=== PATIENT | male | born 1990 | race Caucasian/White ===

== ENCOUNTER → 2018-06-24 | Day surgery (SDC) | payer OTHER ==
[~2018-06-24] MED LIST: BLEOMYCIN SULFATE 15 UNIT VIAL SQ ONE; BLEOMYCIN SULFATE IVPB ONE; CISPLATIN IV ONE; DEXAMETHASONE INJECTION 10 MG, ONDANSETRON INJECTION 8 MG in SODIUM CHLORIDE 100 ML IVPB ONE; ETOPOSIDE IV ONE; FOSAPREPITANT DIMEGLUMINE 150 MG in SODIUM CHLORIDE 145 ML IVPB ONE; POTASSIUM CHLORIDE 20 MEQ, MAGNESIUM SULFATE 1 GM in SODIUM CHLORIDE 1,000 ML IVPB ONE; SODIUM CHLORIDE 1,000 ML IV ONE; SODIUM CHLORIDE IV ONE; SODIUM CHLORIDE IVPB ONE
== END | disposition home or self-care (01) ==
LOC: JRADIR 09:35
PROVIDERS: ATTEND Internal Medicine Hematology & Oncology
PROC: 02HV33Z Insertion of Infusion Device into Superior Vena Cava, Percutaneous Approach (ICD-10-PCS; principal; 2018-06-24)
PROC: B518ZZA Fluoroscopy of Superior Vena Cava, Guidance (ICD-10-PCS; 2018-06-24)
DX: C62.90 Malignant neoplasm of unspecified testis, unspecified whether descended or undescended (principal)
CPT/HCPCS: 36569; 77001-TC-FY; C1751

== ENCOUNTER 2018-06-28 08:34 | Inpatient (IN) | payer OTHER ==
[2018-06-28 10:18] LABS: BASO % 0.8 % (0-2.0); EOS % 2.5 % (0-4.5); HEMATOCRIT 47.2 % (35.4-49); HEMOGLOBIN 16.5 GM/dL (11.7-16.9); LYMPH % 30.6 % (8-40); MCH 30.1 pg (25.7-33.7); MCHC 34.9 g/dl (32.0-35.9); MEAN CELL VOLUME 86.5 fl (80-96); MEAN PLT VOLUME 8.4 fl (7.5-11.1); MONO % 9.2 % (3.8-10.2); NEUT % 56.9 % (42.8-82.8); PLATELET COUNT 246 K/MM3 (134-434); RBC 5.46 M/mm3 (4.00-5.60); RDW 12.9 % (11.9-15.9)
[2018-06-28 11:10] LABS: ALBUMIN 4.2 g/dl (3.4-5.0); ALK PHOS 110 U/L (45-117); ANION GAP 9 MMOL/L (8-16); BILIRUBIN,DIRECT 0.1 mg/dL (0.0-0.2); BILIRUBIN,TOTAL 0.3 mg/dL (0.2-1); BLOOD UREA NITROGEN 16 mg/dL (7-18); CALCIUM 9.1 mg/dL (8.5-10.1); CHLORIDE 105 mmol/L (98-107); CO2 26 mmol/L (21-32); CREATININE 0.7 mg/dL (0.55-1.3); GLUCOSE,RANDOM 76 mg/dL (74-106); MAGNESIUM 2.2 mg/dL (1.8-2.4); POTASSIUM 4.1 mmol/L (3.5-5.1); SGOT/AST 21 U/L (15-37); SGPT/ALT 55 U/L (13-61); SODIUM 140 mmol/L (136-145); TOT PROT 7.9 g/dl (6.4-8.2)
[2018-06-28] MEDS ORDERED: ONDANSETRON 4 MG/2 ML VIAL IVPB PRN (11:12)
[2018-06-28] MEDS ORDERED: DEXAMETHASONE INJECTION 10 MG, ONDANSETRON INJECTION 8 MG in SODIUM CHLORIDE 100 ML IVPB ONE ×2 (12:00→23:15)
[2018-06-28] MEDS ORDERED: FOSAPREPITANT DIMEGLUMINE 150 MG in SODIUM CHLORIDE 150 ML IVPB ONE (12:00)
[2018-06-28] MEDS ORDERED: BLEOMYCIN SULFATE 15 UNIT VIAL ID ONE (12:00)
[2018-06-28] MEDS ORDERED: FOSAPREPITANT DIMEGLUMINE 150 MG in SODIUM CHLORIDE 145 ML IVPB ONE (12:00)
[2018-06-28] MEDS ORDERED: SODIUM CHLORIDE 1,000 ML IV ONE ×2 (12:15→23:15)
[2018-06-28 12:50] LABS: LDH 205 U/L (87-246)
[2018-06-28] MEDS ORDERED: SODIUM CHLORIDE IVPB ONE (13:30)
[2018-06-28] MEDS ORDERED: BLEOMYCIN SULFATE IVPB ONE (13:30)
[2018-06-28] MEDS ORDERED: SODIUM CHLORIDE IV ONE ×3 (13:50→23:00)
[2018-06-28] MEDS ORDERED: ETOPOSIDE IV ONE ×2 (13:50→23:00)
[2018-06-28 14:01] VITALS: BMI 31.9
[2018-06-28] MEDS ORDERED: MAG HYDROX/AL HYDROX/SIMETH 30 ML UNIT-DOSE CUP PO ONE (14:15)
[2018-06-28] MEDS ORDERED: CISPLATIN IV ONE (15:50)
[2018-06-28] MEDS ORDERED: POTASSIUM CHLORIDE 20 MEQ, MAGNESIUM SULFATE 1 GM in SODIUM CHLORIDE 1,000 ML IVPB ONE ×2 (17:50→23:15)
--- NOTE | 2018-06-29 00:38 | HP ---
Admitting History and Physical - Smoking History Smoking history: Never smoked Have you smoked in the past 12 months: No - Alcohol/Substance Use Hx Alcohol Use: No Home Medications - Allergies Allergies/Adverse Reactions: Allergies Allergy/AdvReac Type Severity Reaction Status Date / Time amoxicillin [From Augmentin] Allergy Rash Verified 04/15/18 19:37 clavulanic acid Allergy Rash Verified 04/15/18 19:37 [From Augmentin] Fish Containing Products Allergy Verified 04/09/18 16:13 fish derived Allergy Verified 04/09/18 16:13 Fish Allergy Uncoded 04/08/18 16:28 - Home Medications Home Medications: Ambulatory Orders Escitalopram Oxalate [Lexapro -] 20 mg PO DAILY #30 tablet 04/22/18 Physical Examination Vital Signs: Vital Signs Temperature 98 F 06/28/18 22:00 Pulse Rate 96 H 06/28/18 22:00 Respiratory Rate 18 06/28/18 22:00 Blood Pressure 137/78 06/28/18 22:00 O2 Sat by Pulse Oximetry (%) Labs: CBC, BMP 06/28/18 09:58 06/28/18 09:58 Problem List - Problems (1) Testicular cancer Code(s): C62.90 - MALIG NEOPLASM OF UNSP TESTIS, UNSP DESCENDED OR UNDESCENDED
[2018-06-29 06:47] LABS: BASO % 0.2 % (0-2.0); EOS % 0.1 % (0-4.5); HEMATOCRIT 47.8 % (35.4-49); LYMPH % 5.7 % (8-40); MCH 29.4 pg (25.7-33.7); MCHC 33.6 g/dl (32.0-35.9); MEAN CELL VOLUME 87.7 fl (80-96); MONO % 2.2 % (3.8-10.2); NEUT % 91.8 % (42.8-82.8); PLATELET COUNT 254 K/MM3 (134-434); RBC 5.45 M/mm3 (4.00-5.60); WHITE BLOOD COUNT 8.2 K/mm3 (4.0-10.0)
[2018-06-29 07:13] LABS: ALBUMIN 3.9 g/dl (3.4-5.0); ALK PHOS 100 U/L (45-117); ANION GAP 9 MMOL/L (8-16); BILIRUBIN,TOTAL 0.6 mg/dL (0.2-1); BLOOD UREA NITROGEN 11 mg/dL (7-18); CALCIUM 9.1 mg/dL (8.5-10.1); CHLORIDE 103 mmol/L (98-107); CO2 27 mmol/L (21-32); CREATININE 0.8 mg/dL (0.55-1.3); GLUCOSE,RANDOM 117 mg/dL (74-106); MAGNESIUM 2.1 mg/dL (1.8-2.4); POTASSIUM 4.1 mmol/L (3.5-5.1); SGOT/AST 22 U/L (15-37); SGPT/ALT 56 U/L (13-61); SODIUM 139 mmol/L (136-145); TOT PROT 7.6 g/dl (6.4-8.2)
[2018-06-29] MEDS ORDERED: SODIUM CHLORIDE 1,000 ML IV ONE ×2 (08:00)
[2018-06-29] MEDS ORDERED: DEXAMETHASONE INJECTION 10 MG, ONDANSETRON INJECTION 8 MG in SODIUM CHLORIDE 100 ML IVPB ONE ×2 (08:30)
[2018-06-29] MEDS ORDERED: ETOPOSIDE IV ONE (09:00)
[2018-06-29] MEDS ORDERED: SODIUM CHLORIDE IV ONE ×2 (09:00→11:00)
[2018-06-29] MEDS ORDERED: CISPLATIN IV ONE (11:00)
[2018-06-29 11:41] LABS: ACANTHOCYTES 0; ANISOCYTOSIS 0; HELMET CELLS 0; HOWELL-JOLLY BODIES 0; MACROCYTOSIS 0; OVALOCYTE 0; PLATELET ESTIMATE NORMAL; ROULEAU 0; SICKELED CELLS 0; TARGET CELLS 0; TEAR DROP CELLS 0; TOXIC GRANULATION 0
[2018-06-29] MEDS ORDERED: MAG HYDROX/AL HYDROX/SIMETH 30 ML UNIT-DOSE CUP PO PRN (11:54)
[2018-06-29] MEDS: D5-1/2NS+20 MEQ KCL - 20 MEQ/1,000 ML INFUS.BAG IV SCH ×2 (12:29→16:46)
--- NOTE | 2018-06-29 12:55 | PN ---
Progress Note (short form) - Note Progress Note: Heme/Onc Patient seen and examined at bedside no events overnight feels well has a good appetite Vital Signs Temperature 98.1 F 06/29/18 08:31 Pulse Rate 90 06/29/18 08:31 Respiratory Rate 17 06/29/18 08:31 Blood Pressure 134/74 06/29/18 08:31 O2 Sat by Pulse Oximetry (%) 99 06/29/18 09:00 PE: NAD Lying in Bed AAOx3 RRR S1 S2 CTAB Soft non tender non distended no lower extremity edema 06/29/18 06/29/18 06:00 06:00 WBC 8.2 RBC 5.45 Hgb 16.0 Hct 47.8 MCV 87.7 MCHC 33.6 RDW 13.0 Plt Count 254 Neutrophils % 91.8 H D Lymphocytes % 5.7 L D Monocytes % 2.2 L Eosinophils % 0.1 D Basophils % 0.2 Sodium 139 Potassium 4.1 Chloride 103 Carbon Dioxide 27 Anion Gap 9 BUN 11 Creatinine 0.8 A/P: 27M with testicular cancer admitted for chemotherapy Problem List: Testicular Cancer depression anxiety Plan: Cisplatin Bleomycin Vepesid Decadron Tolerating chemotherapy so far Continue inpatient monitoring Antiemetics pain control lexapro Will follow
[2018-06-29] MEDS ORDERED: POTASSIUM CHLORIDE 20 MEQ, MAGNESIUM SULFATE 1 GM in SODIUM CHLORIDE 1,000 ML IVPB ONE ×2 (13:00)
[2018-06-29] MEDS: PANTOPRAZOLE 40 MG TABLET (FP) PO SCH (14:03)
--- NOTE | 2018-06-29 16:20 | EKG ---
Test Reason : Blood Pressure : / mmHG Vent. Rate : 079 BPM Atrial Rate : 079 BPM P-R Int : 162 ms QRS Dur : 084 ms QT Int : 362 ms P-R-T Axes : 065 026 036 degrees QTc Int : 415 ms NORMAL SINUS RHYTHM NORMAL ECG NO PREVIOUS ECGS AVAILABLE Confirmed by MD Shan, Dar ([id number]) on 06/29/2018 4:20:04 PM Referred By: Ivonne BOWERS Confirmed By:Dar Torrez MD
--- NOTE | 2018-06-29 16:28 | PN ---
Teaching Attending Note Name of Resident: Sean Barth ATTENDING PHYSICIAN STATEMENT I saw and evaluated the patient. I reviewed the resident's note and discussed the case with the resident. I agree with the resident's findings and plan as documented. SUBJECTIVE: Patient seen and examined Complains of chest pain relieved by antacids. States he has had GERD like symptoms x years. 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 CBC, BMP 06/29/18 06:00 06/29/18 06:00 Last Vital Signs Temp Pulse Resp BP Pulse Ox 98.0 F 92 H 18 128/68 99 06/29/18 14:22 06/29/18 14:22 06/29/18 14:22 06/29/18 14:22 06/29/18 09:00 Current Medications Generic Name Dose Route Start Last Admin Trade Name Freq PRN Reason Stop Dose Admin Al Hydroxide/Mg Hydroxide 30 ml 06/29/18 11:54 Mylanta Oral Suspension - PO Q6H PRN HEARTBURN Escitalopram Oxalate 20 mg 06/29/18 22:00 Lexapro - PO HS KAVON Potassium Chloride/Dextrose/Sod Cl 20 meq in 1,000 mls @ 100 mls/hr 06/28/18 11:15 D5-1/2ns+20 Meq Kcl - IV ASDIR KAVON Sodium Chloride 1,000 mls @ 1,000 mls/hr 06/30/18 08:00 Normal Saline - IV 06/30/18 08:59 ONCE ONE Dexamethasone Sodium Phosphate 105 mls @ 210 mls/hr 06/30/18 08:30 10 mg/ Ondansetron HCl 8 mg/ IVPB 06/30/18 08:59 Sodium Chloride ONCE ONE Etoposide 210 mg/ Sodium 510.5 mls @ 255.25 mls/hr 06/30/18 09:00 Chloride IV 06/30/18 10:59 ONCE ONE Cisplatin 42 mg/ Sodium 292 mls @ 146 mls/hr 06/30/18 11:00 Chloride IV 06/30/18 12:59 ONCE ONE Potassium Chloride 20 meq/ 1,012 mls @ 506 mls/hr 06/30/18 13:00 Magnesium Sulfate 1 gm/ Sodium IVPB 06/30/18 14:59 Chloride ONCE ONE Ondansetron HCl 8 mg 06/28/18 11:12 Zofran Injection IVPB Q8H PRN NAUSEA Pantoprazole Sodium 40 mg 06/29/18 12:00 06/29/18 14:03 Protonix - PO 40 mg DAILY KAVON Administration Impression: Non seminomatous germ cell tumor For BEP EKG- no acute changes Plan: Continue with therapy. OBJECTIVE: ASSESSMENT AND PLAN:
[2018-06-29] MEDS ORDERED: BISACODYL 5 MG TABLET.DR (FP) PO PRN (16:29)
--- NOTE | 2018-06-29 18:38 | PN ---
Progress Note, Physician History of Present Illness: No new complaints - Current Medication List Current Medications: Active Medications Al Hydroxide/Mg Hydroxide (Mylanta Oral Suspension -) 30 ml PO Q6H PRN PRN Reason: HEARTBURN Bisacodyl (Dulcolax -) 5 mg PO DAILY PRN PRN Reason: CONSTIPATION Last Admin: 06/29/18 18:11 Dose: 5 mg Escitalopram Oxalate (Lexapro -) 20 mg PO [facility] Potassium Chloride/Dextrose/Sod Cl (D5-1/2ns+20 Meq Kcl -) 20 meq in 1,000 mls @ 100 mls/hr IV ASDIR [facility] Last Admin: 06/29/18 16:46 Dose: Not Given Sodium Chloride (Normal Saline -) 1,000 mls @ 1,000 mls/hr IV ONCE ONE Stop: 06/30/18 08:59 Dexamethasone Sodium Phosphate 10 mg/ Ondansetron HCl 8 mg/Sodium Chloride 105 mls @ 210 mls/hr IVPB ONCE ONE Stop: 06/30/18 08:59 Etoposide 210 mg/ Sodium (Chloride) 510.5 mls @ 255.25 mls/hr IV ONCE ONE Stop: 06/30/18 10:59 Cisplatin 42 mg/ Sodium (Chloride) 292 mls @ 146 mls/hr IV ONCE ONE Stop: 06/30/18 12:59 Potassium Chloride 20 meq/Magnesium Sulfate 1 gm/ Sodium Chloride 1,012 mls @ 506 mls/hr IVPB ONCE ONE Stop: 06/30/18 14:59 Ondansetron HCl (Zofran Injection) 8 mg IVPB Q8H PRN PRN Reason: NAUSEA Pantoprazole Sodium (Protonix -) 40 mg PO DAILY [facility] Last Admin: 06/29/18 14:03 Dose: 40 mg - Objective Vital Signs: Vital Signs Temperature 97.3 F L 06/29/18 17:51 Pulse Rate 79 06/29/18 17:51 Respiratory Rate 18 06/29/18 17:51 Blood Pressure 117/67 06/29/18 17:51 O2 Sat by Pulse Oximetry (%) 99 06/29/18 09:00 Neck: Yes: WNL, Supple Cardiovascular: Yes: WNL, Regular Rate and Rhythm Respiratory: Yes: WNL, Regular, CTA Bilaterally Gastrointestinal: Yes: WNL, Normal Bowel Sounds, Soft Labs: CBC, BMP 06/29/18 06:00 06/29/18 06:00 Problem List - Problems (1) Testicular cancer Assessment/Plan: Chemotx as per onco Cont IVF Check labs in am Code(s): C62.90 - MALIG NEOPLASM OF UNSP TESTIS, UNSP DESCENDED OR UNDESCENDED (2) Depression with anxiety Assessment/Plan: Cont lexapro Code(s): F41.8 - OTHER SPECIFIED ANXIETY DISORDERS
[2018-06-29] MEDS ORDERED: D5-1/2NS+20 MEQ KCL - 20 MEQ/1,000 ML INFUS.BAG IV ONE (21:00)
[2018-06-29] MEDS: ESCITALOPRAM OXALATE 20 MG TABLET (FP) PO SCH (22:50)
[2018-06-30 07:15] LABS: BASO % 0.3 % (0-2.0); HEMATOCRIT 46.5 % (35.4-49); HEMOGLOBIN 15.6 GM/dL (11.7-16.9); LYMPH % 6.3 % (8-40); MCH 29.3 pg (25.7-33.7); MCHC 33.4 g/dl (32.0-35.9); MEAN CELL VOLUME 87.5 fl (80-96); MEAN PLT VOLUME 8.6 fl (7.5-11.1); NEUT % 88.4 % (42.8-82.8); PLATELET COUNT 264 K/MM3 (134-434); RBC 5.31 M/mm3 (4.00-5.60); RDW 13.2 % (11.9-15.9); WHITE BLOOD COUNT 13.4 K/mm3 (4.0-10.0)
[2018-06-30] MEDS ORDERED: SODIUM CHLORIDE 1,000 ML IV ONE (08:00)
[2018-06-30] MEDS ORDERED: PT OWN MED DRAWER 7, Y5N ONE ×2 (08:26→20:43)
[2018-06-30] MEDS ORDERED: DEXAMETHASONE INJECTION 10 MG, ONDANSETRON INJECTION 8 MG in SODIUM CHLORIDE 100 ML IVPB ONE (08:30)
[2018-06-30 08:48] LABS: ALBUMIN 3.9 g/dl (3.4-5.0); ALK PHOS 88 U/L (45-117); ANION GAP 8 MMOL/L (8-16); BILIRUBIN,TOTAL 0.6 mg/dL (0.2-1); BLOOD UREA NITROGEN 11 mg/dL (7-18); CALCIUM 8.8 mg/dL (8.5-10.1); CHLORIDE 103 mmol/L (98-107); CO2 27 mmol/L (21-32); CREATININE 0.7 mg/dL (0.55-1.3); GLUCOSE,RANDOM 100 mg/dL (74-106); MAGNESIUM 2.3 mg/dL (1.8-2.4); POTASSIUM 4.2 mmol/L (3.5-5.1); SGOT/AST 17 U/L (15-37); SGPT/ALT 44 U/L (13-61); SODIUM 137 mmol/L (136-145); TOT PROT 7.6 g/dl (6.4-8.2); URIC ACID 3.2 mg/dL (2.6-7.2)
[2018-06-30] MEDS ORDERED: ETOPOSIDE IV ONE (09:00)
[2018-06-30] MEDS ORDERED: SODIUM CHLORIDE IV ONE ×2 (09:00→11:00)
[2018-06-30] MEDS: PANTOPRAZOLE 40 MG TABLET (FP) PO SCH (10:46)
[2018-06-30] MEDS ORDERED: CISPLATIN IV ONE (11:00)
[2018-06-30] MEDS ORDERED: POTASSIUM CHLORIDE 20 MEQ, MAGNESIUM SULFATE 1 GM in SODIUM CHLORIDE 1,000 ML IVPB ONE (13:00)
[2018-06-30] MEDS ORDERED: chlorproMAZINE HCL 25 MG TABLET PO PRN (17:54)
[2018-06-30] MEDS: SUCRALFATE 1 GM/10 ML UNIT DOSE CUPS PO SCH ×2 (18:11→22:04)
--- NOTE | 2018-06-30 20:39 | PN ---
Progress Note (short form) - Note Progress Note: Patient seen and examined Complains of chest pressure - relieved to some extent by antacids Also with eructation Day # 3 of chemotherapy with cisplatinum and [id number] well to date Last Vital Signs Temp Pulse Resp BP Pulse Ox 98.1 F 91 H 18 116/69 99 06/30/18 16:49 06/30/18 16:49 06/30/18 16:49 06/30/18 16:49 06/30/18 09:00 HEENT: SOL, EOM Intact Oropharynx: No thrush, No mucositis Cor: RSR, No murmurs, No gallops Lungs: Clear to P&A Abd: Soft, Normal bowel sounds, No organomegaly Ext:No significant edema Skin: No rashes, Integument intact CBC, BMP 06/30/18 06:00 06/30/18 06:00 Current Medications Generic Name Dose Route Start Last Admin Trade Name Freq PRN Reason Stop Dose Admin Bisacodyl 5 mg 06/29/18 16:29 06/29/18 18:11 Dulcolax - PO 5 mg DAILY PRN Administration CONSTIPATION Chlorpromazine HCl 25 mg 06/30/18 17:54 Thorazine - PO TID PRN Hiccups Escitalopram Oxalate 20 mg 06/29/18 22:00 06/29/18 22:50 Lexapro - PO 20 mg HS KAVON Administration Sodium Chloride 1,000 mls @ 1,000 mls/hr 07/01/18 08:00 Normal Saline - IV 07/01/18 08:59 ONCE ONE Dexamethasone Sodium Phosphate 105 mls @ 210 mls/hr 07/01/18 08:30 10 mg/ Ondansetron HCl 8 mg/ IVPB 07/01/18 08:59 Sodium Chloride ONCE ONE Etoposide 210 mg/ Sodium 510.5 mls @ 255.25 mls/hr 07/01/18 09:00 Chloride IV 07/01/18 10:59 ONCE ONE Cisplatin 42 mg/ Sodium 292 mls @ 146 mls/hr 07/01/18 11:00 Chloride IV 07/01/18 12:59 ONCE ONE Potassium Chloride 20 meq/ 1,012 mls @ 506 mls/hr 07/01/18 13:00 Magnesium Sulfate 1 gm/ Sodium IVPB 07/01/18 14:59 Chloride ONCE ONE Ondansetron HCl 8 mg 06/28/18 11:12 Zofran Injection IVPB Q8H PRN NAUSEA Pantoprazole Sodium 40 mg 06/29/18 12:00 06/30/18 10:46 Protonix - PO 40 mg DAILY KAVON Administration Sucralfate 1 gm 06/30/18 18:00 06/30/18 18:11 Carafate Oral Suspension - PO 1 gm QID KAVON Administration Impression: Yolk sac tumor BEP chemotherapy Atypical chest pain GERD Eructation Suspicion is that chest pains are GI related. Will obtain GI consult Will also get cardiology Continuing with chemotherapy
[2018-06-30] MEDS: ESCITALOPRAM OXALATE 20 MG TABLET (FP) PO SCH (22:04)
--- NOTE | 2018-06-30 23:34 | PN ---
Progress Note, Physician - Current Medication List Current Medications: Active Medications Bisacodyl (Dulcolax -) 5 mg PO DAILY PRN PRN Reason: CONSTIPATION Last Admin: 06/29/18 18:11 Dose: 5 mg Chlorpromazine HCl (Thorazine -) 25 mg PO TID PRN PRN Reason: Hiccups Escitalopram Oxalate (Lexapro -) 20 mg PO [facility] Last Admin: 06/30/18 22:04 Dose: 20 mg Sodium Chloride (Normal Saline -) 1,000 mls @ 1,000 mls/hr IV ONCE ONE Stop: 07/01/18 08:59 Dexamethasone Sodium Phosphate 10 mg/ Ondansetron HCl 8 mg/Sodium Chloride 105 mls @ 210 mls/hr IVPB ONCE ONE Stop: 07/01/18 08:59 Etoposide 210 mg/ Sodium (Chloride) 510.5 mls @ 255.25 mls/hr IV ONCE ONE Stop: 07/01/18 10:59 Cisplatin 42 mg/ Sodium (Chloride) 292 mls @ 146 mls/hr IV ONCE ONE Stop: 07/01/18 12:59 Potassium Chloride 20 meq/Magnesium Sulfate 1 gm/ Sodium Chloride 1,012 mls @ 506 mls/hr IVPB ONCE ONE Stop: 07/01/18 14:59 Ondansetron HCl (Zofran Injection) 8 mg IVPB Q8H PRN PRN Reason: NAUSEA Pantoprazole Sodium (Protonix -) 40 mg PO DAILY [facility] Last Admin: 06/30/18 10:46 Dose: 40 mg Sucralfate (Carafate Oral Suspension -) 1 gm PO QID [facility] Last Admin: 06/30/18 22:04 Dose: 1 gm - Objective Vital Signs: Vital Signs Temperature 98.1 F 06/30/18 16:49 Pulse Rate 91 H 06/30/18 16:49 Respiratory Rate 18 06/30/18 16:49 Blood Pressure 116/69 06/30/18 16:49 O2 Sat by Pulse Oximetry (%) 100 06/30/18 21:00 Labs: CBC, BMP 06/30/18 06:00 06/30/18 06:00 Problem List - Problems (1) Testicular cancer Code(s): C62.90 - MALIG NEOPLASM OF UNSP TESTIS, UNSP DESCENDED OR UNDESCENDED (2) Depression with anxiety Code(s): F41.8 - OTHER SPECIFIED ANXIETY DISORDERS
[2018-07-01] MEDS ORDERED: PT OWN MED DRAWER 7, Y5N ONE (01:12)
[2018-07-01 07:15] LABS: BASO % 0.1 % (0-2.0); HEMATOCRIT 42.7 % (35.4-49); HEMOGLOBIN 14.7 GM/dL (11.7-16.9); LYMPH % 10.3 % (8-40); MCH 29.5 pg (25.7-33.7); MCHC 34.4 g/dl (32.0-35.9); MEAN CELL VOLUME 85.8 fl (80-96); MEAN PLT VOLUME 8.8 fl (7.5-11.1); MONO % 4.4 % (3.8-10.2); NEUT % 85.2 % (42.8-82.8); PLATELET COUNT 211 K/MM3 (134-434); RBC 4.98 M/mm3 (4.00-5.60); RDW 12.8 % (11.9-15.9); WHITE BLOOD COUNT 10.4 K/mm3 (4.0-10.0)
[2018-07-01 07:40] LABS: ALBUMIN 3.4 g/dl (3.4-5.0); ALK PHOS 77 U/L (45-117); ANION GAP 7 MMOL/L (8-16); BILIRUBIN,TOTAL 0.7 mg/dL (0.2-1); BLOOD UREA NITROGEN 12 mg/dL (7-18); CALCIUM 8.6 mg/dL (8.5-10.1); CHLORIDE 101 mmol/L (98-107); CO2 27 mmol/L (21-32); CREATININE 0.8 mg/dL (0.55-1.3); GLUCOSE,RANDOM 82 mg/dL (74-106); MAGNESIUM 2.1 mg/dL (1.8-2.4); SGOT/AST 10 U/L (15-37); SGPT/ALT 35 U/L (13-61); SODIUM 136 mmol/L (136-145); TOT PROT 6.7 g/dl (6.4-8.2); URIC ACID 3.4 mg/dL (2.6-7.2)
[2018-07-01] MEDS ORDERED: SODIUM CHLORIDE 1,000 ML IV ONE (08:00)
[2018-07-01] MEDS ORDERED: DEXAMETHASONE INJECTION 10 MG, ONDANSETRON INJECTION 8 MG in SODIUM CHLORIDE 100 ML IVPB ONE (08:30)
[2018-07-01] MEDS ORDERED: ETOPOSIDE IV ONE (09:00)
[2018-07-01] MEDS ORDERED: SODIUM CHLORIDE IV ONE ×2 (09:00→11:00)
--- NOTE | 2018-07-01 09:38 | CON.CARD ---
Cardiology Consult (text) - Consultation Consultation Note: IMP: Atypical CP, likely GERD Doubt cisplatin assd coronary spasm Unlikely related to Bleomycin, usually assd with pericardial inflammation REC: Echo appears normal -Would cycle 2 sets cardiac enzymes and trial of PPI for GERD. Will follow Thank you
[2018-07-01] MEDS: PANTOPRAZOLE 40 MG TABLET (FP) PO SCH (10:04)
[2018-07-01] MEDS: SUCRALFATE 1 GM/10 ML UNIT DOSE CUPS PO SCH ×4 (10:04→21:42)
[2018-07-01] MEDS ORDERED: CISPLATIN IV ONE (11:00)
--- NOTE | 2018-07-01 11:24 | CONS ---
DATE OF CONSULTATION: 07/01/2018 REQUESTING PHYSICIAN: Bebeto Jerez MD REASON FOR CONSULTATION: Chest pain. HISTORY OF PRESENT ILLNESS: The patient is a 27-year-old male with recently diagnosed testicular cancer status post resection currently admitted for chemotherapy with etoposide, cisplatinum, bleomycin. Yesterday was his 3rd day of chemotherapy, and he began to feel hiccups and associated heartburn sensation intermittently throughout the day which began prior to the chemotherapy infusion. He denies pleuritic pain, positional pain. He denies shortness of breath, nausea, vomiting, or diaphoresis. His ECG was normal, oxygen saturation is 100 on room air. An echocardiogram performed this morning appears normal with no evidence of pericarditis and normal wall motion. PAST MEDICAL HISTORY: Is as above. 1. Significant for testicular cancer, status post resection, and currently undergoing chemotherapy. 2. Depression. ALLERGIES: AMOXICILLIN and FISH. CURRENT MEDICATIONS: Dulcolax, Thorazine, cisplatinum, etoposide, Zofran, Protonix, sucralfate. FAMILY HISTORY: Negative for early coronary disease. SOCIAL HISTORY: He denies alcohol, tobacco, or illicit drug use. PHYSICAL EXAMINATION: Vital signs: Comfortable, afebrile, temperature of 97.8, blood pressure 115/65, oxygen saturation is 100 on room air. Neck: No bruits. Heart: S1, S2, regular. No murmurs, rubs, or gallops. Chest: Clear. Abdomen: Soft, nontender. Extremities: No edema. DIAGNOSTIC DATA: His ECG showed normal sinus rhythm at 79 beats per minute with no acute ST changes. Preliminary echo was normal. CBC with white count 10.4, hematocrit 42.7, platelets 211. Sodium 136, potassium 4, creatinine 0.8, Cardiac enzymes are pending. IMPRESSION: 1. Atypical chest pain, likely gastroesophageal reflux disease. 2. Doubt cisplatinum-associated coronary spasm. 3. Unlikely related to bleomycin, which is usually associated with pericardial inflammation. RECOMMENDATIONS: Echocardiogram appears normal; would cycle 2 sets of cardiac enzymes and continue trial of proton pump inhibitor for GERD. Will follow. DELL DEAN M.D. [id number]
--- NOTE | 2018-07-01 12:38 | PN ---
Progress Note (short form) - Note Progress Note: Heme/Onc Patient seen and examined at bedside no events overnight feels well has a good appetite Seen by cardiology PE: Vital Signs Temperature 97.3 F L 07/01/18 12:19 Pulse Rate 74 07/01/18 12:19 Respiratory Rate 18 07/01/18 12:19 Blood Pressure 125/67 07/01/18 12:19 O2 Sat by Pulse Oximetry (%) 98 07/01/18 09:00 NAD Lying in Bed AAOx3 RRR S1 S2 CTAB Soft non tender non distended no lower extremity edema 07/01/18 07/01/18 06:30 06:30 WBC 10.4 H RBC 4.98 Hgb 14.7 Hct 42.7 MCV 85.8 MCHC 34.4 RDW 12.8 Plt Count 211 D Neutrophils % 85.2 H Lymphocytes % 10.3 D Monocytes % 4.4 Eosinophils % 0.0 Basophils % 0.1 Sodium 136 Potassium 4.0 Chloride 101 Carbon Dioxide 27 Anion Gap 7 L BUN 12 Creatinine 0.8 A/P: 27M with testicular cancer admitted for chemotherapy Problem List: Testicular Cancer depression anxiety GERD Atypical chest pain Plan: Cisplatin Bleomycin Vepesid Decadron Tolerating chemotherapy so far Continue inpatient monitoring Antiemetics pain control lexapro Trend cardiac enzymes x2 continue PPI Will follow
[2018-07-01] MEDS ORDERED: POTASSIUM CHLORIDE 20 MEQ, MAGNESIUM SULFATE 1 GM in SODIUM CHLORIDE 1,000 ML IVPB ONE (13:00)
--- NOTE | 2018-07-01 13:23 | ECHO ---
Name: GLORIA BOOTHIS A Exam:Adult Echocardiogram Study Date: 07/01/2018 09:03 AM Age: 27 yrs Reason For Study: Chest pain Height: 67 in Weight: 203 lb BSA: 2.0 m2 MMode/2D Measurements & Calculations IVSd: 0.83 cm Ao root diam: 2.8 cm LVIDd: 5.0 cm LVIDs: 3.3 cm LVPWd: 1.0 cm EDV(Teich): 119.5 ml LVOT diam: 2.0 cm ESV(Teich): 45.4 ml TAPSE: 2.3 cm RV S Mando: 12.7 cm/sec Doppler Measurements & Calculations MV E max mando: 83.4 cm/sec Med Peak E' Mando: 8.8 cm/sec MV A max mando: 58.7 cm/sec Med E/e': 9.5 MV E/A: 1.4 Lat Peak E' Mando: 14.0 cm/sec Lat E/e': 5.9 Procedure A complete two-dimensional transthoracic echocardiogram was performed (2D, M-mode, Doppler and color flow Doppler). Left Ventricle The left ventricular size, thickness and function are normal. The left ventricular ejection fraction is normal. Ejection Fraction = 55-60%. The left ventricular wall motion is normal. Right Ventricle The right ventricle is normal in size and function. Atria Normal left and right atrial size and function. Mitral Valve There is trace mitral regurgitation. Tricuspid Valve No tricuspid regurgitation. There was insufficient TR detected to calculate RV systolic pressure. Aortic Valve The aortic valve is trileaflet. No hemodynamically significant valvular aortic stenosis. No aortic regurgitation is present. Pulmonic Valve There is no pulmonic valvular regurgitation. Great Vessels The aortic root is normal size. Pericardium/Pleura There is no pericardial effusion. Interpretation Summary The left ventricular size, thickness and function are normal The right ventricle is normal in size and function. There is trace mitral regurgitation. MD David Davis 07/01/2018 01:23 PM
--- NOTE | 2018-07-01 19:14 | PN ---
Progress Note (short form) - Note Progress Note: Patient seen and examined Feels well Last Vital Signs Temp Pulse Resp BP Pulse Ox 97.7 F 73 18 127/82 98 07/01/18 14:42 07/01/18 14:42 07/01/18 14:42 07/01/18 14:42 07/01/18 09:00 Cor: RSR, No murmurs, No gallops Lungs: Clear to P&A Abd: Soft, Normal bowel sounds, No organomegaly Ext:No significant edema Abnormal Lab Results 07/01/18 07/01/18 06:30 06:30 WBC 10.4 H Absolute Neuts (auto) 8.9 H Neutrophils % 85.2 H Anion Gap 7 L AST 10 L Active Medications Generic Name Dose Route Start Last Admin Trade Name Freq PRN Reason Stop Dose Admin Bisacodyl 5 mg 06/29/18 16:29 06/29/18 18:11 Dulcolax - PO 5 mg DAILY PRN Administration CONSTIPATION Chlorpromazine HCl 25 mg 06/30/18 17:54 07/01/18 01:23 Thorazine - PO 25 mg TID PRN Administration Hiccups Escitalopram Oxalate 20 mg 06/29/18 22:00 06/30/18 22:04 Lexapro - PO 20 mg HS KAVON Administration Sodium Chloride 1,000 mls @ 1,000 mls/hr 07/02/18 08:00 Normal Saline - IV 07/02/18 08:59 ONCE ONE Dexamethasone 10 mg/ 105 mls @ 210 mls/hr 07/02/18 08:30 Ondansetron HCl 8 mg/ Sodium IVPB 07/02/18 08:59 Chloride ONCE ONE Etoposide 210 mg/ Sodium 510.5 mls @ 255.25 mls/hr 07/02/18 09:00 Chloride IV 07/02/18 10:59 ONCE ONE Cisplatin 42 mg/ Sodium 292 mls @ 146 mls/hr 07/02/18 11:00 Chloride IV 07/02/18 12:59 ONCE ONE Potassium Chloride 20 meq/ 1,012 mls @ 506 mls/hr 07/02/18 13:00 Magnesium Sulfate 1 gm/ Sodium IVPB 07/02/18 14:59 Chloride ONCE ONE Ondansetron HCl 8 mg 06/28/18 11:12 Zofran Injection IVPB Q8H PRN NAUSEA Pantoprazole Sodium 40 mg 06/29/18 12:00 07/01/18 10:04 Protonix - PO 40 mg DAILY KAVON Administration Sucralfate 1 gm 06/30/18 18:00 07/01/18 17:41 Carafate Oral Suspension - PO 1 gm QID KAVON Administration A/P 27 y/o patient with non seminomatous germ cell tumor On BEP D4 today For D5 tomorrow tolerating well
--- NOTE | 2018-07-01 21:03 | PN ---
Progress Note, Physician - Current Medication List Current Medications: Active Medications Bisacodyl (Dulcolax -) 5 mg PO DAILY PRN PRN Reason: CONSTIPATION Last Admin: 06/29/18 18:11 Dose: 5 mg Chlorpromazine HCl (Thorazine -) 25 mg PO TID PRN PRN Reason: Hiccups Last Admin: 07/01/18 01:23 Dose: 25 mg Escitalopram Oxalate (Lexapro -) 20 mg PO [facility] Last Admin: 06/30/18 22:04 Dose: 20 mg Sodium Chloride (Normal Saline -) 1,000 mls @ 1,000 mls/hr IV ONCE ONE Stop: 07/02/18 08:59 Dexamethasone 10 mg/Ondansetron HCl 8 mg/ Sodium Chloride 105 mls @ 210 mls/hr IVPB ONCE ONE Stop: 07/02/18 08:59 Etoposide 210 mg/ Sodium (Chloride) 510.5 mls @ 255.25 mls/hr IV ONCE ONE Stop: 07/02/18 10:59 Cisplatin 42 mg/ Sodium (Chloride) 292 mls @ 146 mls/hr IV ONCE ONE Stop: 07/02/18 12:59 Potassium Chloride 20 meq/Magnesium Sulfate 1 gm/ Sodium Chloride 1,012 mls @ 506 mls/hr IVPB ONCE ONE Stop: 07/02/18 14:59 Ondansetron HCl (Zofran Injection) 8 mg IVPB Q8H PRN PRN Reason: NAUSEA Pantoprazole Sodium (Protonix -) 40 mg PO DAILY [facility] Last Admin: 07/01/18 10:04 Dose: 40 mg Sucralfate (Carafate Oral Suspension -) 1 gm PO QID [facility] Last Admin: 07/01/18 17:41 Dose: 1 gm - Objective Vital Signs: Vital Signs Temperature 97.7 F 07/01/18 14:42 Pulse Rate 73 07/01/18 14:42 Respiratory Rate 18 07/01/18 14:42 Blood Pressure 127/82 07/01/18 14:42 O2 Sat by Pulse Oximetry (%) 98 07/01/18 09:00 Labs: CBC, BMP 07/01/18 06:30 07/01/18 06:30 Problem List - Problems (1) Testicular cancer Code(s): C62.90 - MALIG NEOPLASM OF UNSP TESTIS, UNSP DESCENDED OR UNDESCENDED (2) Depression with anxiety Code(s): F41.8 - OTHER SPECIFIED ANXIETY DISORDERS
[2018-07-01] MEDS: ESCITALOPRAM OXALATE 20 MG TABLET (FP) PO SCH (21:42)
[2018-07-02 07:10] LABS: HEMATOCRIT 43.9 % (35.4-49); HEMOGLOBIN 14.9 GM/dL (11.7-16.9); LYMPH % 15.7 % (8-40); MCH 29.3 pg (25.7-33.7); MEAN CELL VOLUME 85.9 fl (80-96); MEAN PLT VOLUME 8.7 fl (7.5-11.1); MONO % 2.6 % (3.8-10.2); NEUT % 81.7 % (42.8-82.8); PLATELET COUNT 218 K/MM3 (134-434); RBC 5.11 M/mm3 (4.00-5.60); RDW 12.8 % (11.9-15.9); WHITE BLOOD COUNT 8.7 K/mm3 (4.0-10.0)
[2018-07-02 07:38] LABS: ALBUMIN 3.6 g/dl (3.4-5.0); ALK PHOS 72 U/L (45-117); ANION GAP 8 MMOL/L (8-16); BILIRUBIN,TOTAL 0.8 mg/dL (0.2-1); BLOOD UREA NITROGEN 15 mg/dL (7-18); CALCIUM 8.8 mg/dL (8.5-10.1); CHLORIDE 100 mmol/L (98-107); CO2 27 mmol/L (21-32); CREATININE 0.6 mg/dL (0.55-1.3); GLUCOSE,RANDOM 77 mg/dL (74-106); MAGNESIUM 2.3 mg/dL (1.8-2.4); POTASSIUM 3.7 mmol/L (3.5-5.1); SGOT/AST 10 U/L (15-37); SGPT/ALT 31 U/L (13-61); SODIUM 135 mmol/L (136-145); TOT PROT 6.9 g/dl (6.4-8.2); URIC ACID 3.7 mg/dL (2.6-7.2)
[2018-07-02] MEDS ORDERED: SODIUM CHLORIDE 1,000 ML IV ONE (08:00)
[2018-07-02] MEDS ORDERED: DEXAMETHASONE SODIUM PHOSPHATE 10 MG, ONDANSETRON INJECTION 8 MG in SODIUM CHLORIDE 100 ML IVPB ONE (08:30)
--- NOTE | 2018-07-02 08:30 | PN ---
Progress Note, Physician Chief Complaint: comfortable no distress Cardiac enzymes negative. - Current Medication List Current Medications: Active Medications Bisacodyl (Dulcolax -) 5 mg PO DAILY PRN PRN Reason: CONSTIPATION Last Admin: 06/29/18 18:11 Dose: 5 mg Chlorpromazine HCl (Thorazine -) 25 mg PO TID PRN PRN Reason: Hiccups Last Admin: 07/01/18 01:23 Dose: 25 mg Escitalopram Oxalate (Lexapro -) 20 mg PO HS [facility] Last Admin: 07/01/18 21:42 Dose: 20 mg Sodium Chloride (Normal Saline -) 1,000 mls @ 1,000 mls/hr IV ONCE ONE Stop: 07/02/18 08:59 Dexamethasone 10 mg/Ondansetron HCl 8 mg/ Sodium Chloride 105 mls @ 210 mls/hr IVPB ONCE ONE Stop: 07/02/18 08:59 Etoposide 210 mg/ Sodium (Chloride) 510.5 mls @ 255.25 mls/hr IV ONCE ONE Stop: 07/02/18 10:59 Cisplatin 42 mg/ Sodium (Chloride) 292 mls @ 146 mls/hr IV ONCE ONE Stop: 07/02/18 12:59 Potassium Chloride 20 meq/Magnesium Sulfate 1 gm/ Sodium Chloride 1,012 mls @ 506 mls/hr IVPB ONCE ONE Stop: 07/02/18 14:59 Ondansetron HCl (Zofran Injection) 8 mg IVPB Q8H PRN PRN Reason: NAUSEA Last Admin: 07/02/18 06:45 Dose: 8 mg Pantoprazole Sodium (Protonix -) 40 mg PO DAILY [facility] Last Admin: 07/01/18 10:04 Dose: 40 mg Sucralfate (Carafate Oral Suspension -) 1 gm PO QID [facility] Last Admin: 07/01/18 21:42 Dose: 1 gm - Objective Vital Signs: Vital Signs Temperature 98.0 F 07/02/18 05:59 Pulse Rate 75 07/02/18 05:59 Respiratory Rate 18 07/02/18 05:59 Blood Pressure 125/69 07/02/18 05:59 O2 Sat by Pulse Oximetry (%) 98 07/01/18 21:00 Constitutional: Yes: No Distress, Calm Cardiovascular: Yes: Regular Rate and Rhythm Respiratory: Yes: CTA Bilaterally Gastrointestinal: Yes: Soft Edema: No Neurological: Yes: Alert, Oriented ...Motor Strength: WNL Labs: CBC, BMP 07/02/18 06:00 07/02/18 06:00 Laboratory Tests 07/01/18 07/01/18 07/02/18 10:15 15:30 06:00 WBC 8.7 Hgb 14.9 Plt Count 218 Sodium Potassium Creatinine Creatine Kinase 39 36 Troponin I < 0.02 < 0.02 07/02/18 06:00 WBC Hgb Plt Count Sodium 135 L Potassium 3.7 Creatinine 0.6 Creatine Kinase Troponin I Assessment/Plan IMP: Atypical CP, likely GERD Doubt cisplatin assd coronary spasm Unlikely related to Bleomycin, usually assd with pericardial inflammation REC: Normal echo and negative cardiac enzymes. Cont. PPI. Will sign off today. Please call again as/if needed. Thank you.
[2018-07-02] MEDS ORDERED: SODIUM CHLORIDE IV ONE ×2 (09:00→11:00)
[2018-07-02] MEDS ORDERED: ETOPOSIDE IV ONE (09:00)
[2018-07-02] MEDS: PANTOPRAZOLE 40 MG TABLET (FP) PO SCH (09:55)
[2018-07-02] MEDS ORDERED: FOSAPREPITANT DIMEGLUMINE 150 MG in SODIUM CHLORIDE 150 ML IVPB ONE (10:00)
[2018-07-02] MEDS: SUCRALFATE 1 GM/10 ML UNIT DOSE CUPS PO SCH ×4 (10:07→21:43)
[2018-07-02] MEDS ORDERED: CISPLATIN IV ONE (11:00)
[2018-07-02] MEDS ORDERED: POTASSIUM CHLORIDE 20 MEQ, MAGNESIUM SULFATE 1 GM in SODIUM CHLORIDE 1,000 ML IVPB ONE (13:00)
--- NOTE | 2018-07-02 13:01 | PN ---
Progress Note (short form) - Note Progress Note: Heme/Onc Patient seen and examined at bedside no events overnight poor appetite today feels nauseas when he eats Seen by cardiology-troponin negative x2 chest pressure resolved PE: Vital Signs Temperature 97.4 F L 07/02/18 09:01 Pulse Rate 91 H 07/02/18 09:01 Respiratory Rate 18 07/02/18 09:01 Blood Pressure 143/87 07/02/18 09:01 O2 Sat by Pulse Oximetry (%) 99 07/02/18 09:00 NAD Lying in Bed AAOx3 RRR S1 S2 CTAB Soft non tender non distended no lower extremity edema 07/02/18 07/02/18 06:00 06:00 WBC 8.7 RBC 5.11 Hgb 14.9 Hct 43.9 MCV 85.9 MCHC 34.0 RDW 12.8 Plt Count 218 Neutrophils % 81.7 Lymphocytes % 15.7 D Monocytes % 2.6 L Eosinophils % 0.0 Basophils % 0.0 Sodium 135 L Potassium 3.7 Chloride 100 Carbon Dioxide 27 Anion Gap 8 BUN 15 Creatinine 0.6 A/P: 27M with testicular cancer admitted for chemotherapy Problem List: Testicular Cancer depression anxiety GERD Atypical chest pain-resolved Plan: Cisplatin Bleomycin Vepesid Decadron Tolerating chemotherapy so far Continue inpatient monitoring Antiemetics pain control lexapro cardiac enzymes negative x2 continue PPI Will follow
--- NOTE | 2018-07-02 16:57 | PN ---
Progress Note (short form) - Note Progress Note: Patient seen and examined Feels well Vital Signs Temperature 97.3 F L 07/02/18 14:03 Pulse Rate 74 07/02/18 14:03 Respiratory Rate 18 07/02/18 14:03 Blood Pressure 126/77 07/02/18 14:03 O2 Sat by Pulse Oximetry (%) 99 07/02/18 09:00 Cor: RSR, No murmurs, No gallops Lungs: Clear to P&A Abd: Soft, Normal bowel sounds, No organomegaly Ext:No significant edema Abnormal Lab Results 07/02/18 07/02/18 06:00 06:00 Monocytes % 2.6 L Sodium 135 L AST 10 L Active Medications Generic Name Dose Route Start Last Admin Trade Name Freq PRN Reason Stop Dose Admin Bisacodyl 5 mg 06/29/18 16:29 06/29/18 18:11 Dulcolax - PO 5 mg DAILY PRN Administration CONSTIPATION Chlorpromazine HCl 25 mg 06/30/18 17:54 07/01/18 01:23 Thorazine - PO 25 mg TID PRN Administration Hiccups Escitalopram Oxalate 20 mg 06/29/18 22:00 07/01/18 21:42 Lexapro - PO 20 mg HS [facility] Administration Ondansetron HCl 8 mg 06/28/18 11:12 07/02/18 06:45 Zofran Injection IVPB 8 mg Q8H PRN Administration NAUSEA Pantoprazole Sodium 20 mg 07/03/18 10:00 Protonix - PO 07/08/18 09:59 DAILY [facility] Sucralfate 1 gm 06/30/18 18:00 07/02/18 13:37 Carafate Oral Suspension - PO 1 gm QID [facility] Administration A/P 27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
--- NOTE | 2018-07-02 19:50 | PN ---
Progress Note, Physician - Current Medication List Current Medications: Active Medications Bisacodyl (Dulcolax -) 5 mg PO DAILY PRN PRN Reason: CONSTIPATION Last Admin: 06/29/18 18:11 Dose: 5 mg Chlorpromazine HCl (Thorazine -) 25 mg PO TID PRN PRN Reason: Hiccups Last Admin: 07/01/18 01:23 Dose: 25 mg Escitalopram Oxalate (Lexapro -) 20 mg PO HS [facility] Last Admin: 07/01/18 21:42 Dose: 20 mg Pantoprazole Sodium (Protonix -) 20 mg PO DAILY [facility] Stop: 07/08/18 09:59 Sucralfate (Carafate Oral Suspension -) 1 gm PO QID [facility] Last Admin: 07/02/18 17:12 Dose: 1 gm - Objective Vital Signs: Vital Signs Temperature 97.8 F 07/02/18 18:00 Pulse Rate 84 07/02/18 18:00 Respiratory Rate 20 07/02/18 18:00 Blood Pressure 118/56 L 07/02/18 18:00 O2 Sat by Pulse Oximetry (%) 99 07/02/18 09:00 Labs: CBC, BMP 07/02/18 06:00 07/02/18 06:00 Problem List - Problems (1) Testicular cancer Code(s): C62.90 - MALIG NEOPLASM OF UNSP TESTIS, UNSP DESCENDED OR UNDESCENDED (2) Depression with anxiety Code(s): F41.8 - OTHER SPECIFIED ANXIETY DISORDERS
[2018-07-02] MEDS: ESCITALOPRAM OXALATE 20 MG TABLET (FP) PO SCH (21:43)
[2018-07-03] MEDS ORDERED: SODIUM CHLORIDE 0.9% 500 ML INFUS.BAG IV ONE (06:51)
--- NOTE | 2018-07-03 07:00 | RAPID ---
Physical Examination Vital Signs: Vital Signs Temperature 97.6 F 07/03/18 06:09 Pulse Rate 85 07/03/18 06:09 Respiratory Rate 18 07/03/18 06:09 Blood Pressure 142/79 07/03/18 06:09 O2 Sat by Pulse Oximetry (%) 99 07/02/18 21:00 Labs: CBC, BMP 07/02/18 06:00 07/02/18 06:00 Rapid Response - Rapid Response Assessment: rapid response was called at 6;47- nurses alerted on called team patient was dizzy and wreak after having gone to the bathroom, noted to have had a history of this vitals: BP 107/64 HR 70 RR 13 spo2 94 percent PE: gen: pale, distress cardio: RRR s1 s2 no murmurs, rubs or gallpos lungs CTA BL abdomen soft; non-tender, non-distended +BS extremities; no edema plan: likely hypotensive 2/2 dehydration vs vasovagal CBC CMP Mg EKG TRops
[2018-07-03] MEDS ORDERED: SODIUM CHLORIDE 1,000 ML IV ONE (07:15)
[2018-07-03] MEDS ORDERED: DEXTROSE 5%-NORMAL SALINE 1,000 ML IV SCH (08:15)
[2018-07-03 08:27] LABS: BASO % 0.1 % (0-2.0); HEMATOCRIT 42.9 % (35.4-49); HEMOGLOBIN 14.5 GM/dL (11.7-16.9); MCH 29.2 pg (25.7-33.7); MCHC 33.7 g/dl (32.0-35.9); MEAN CELL VOLUME 86.7 fl (80-96); MEAN PLT VOLUME 8.8 fl (7.5-11.1); MONO % 0.9 % (3.8-10.2); PLATELET COUNT 187 K/MM3 (134-434); RBC 4.96 M/mm3 (4.00-5.60); RDW 12.8 % (11.9-15.9); WHITE BLOOD COUNT 7.5 K/mm3 (4.0-10.0)
[2018-07-03 08:46] LABS: ALBUMIN 3.4 g/dl (3.4-5.0); ALK PHOS 70 U/L (45-117); ANION GAP 13 MMOL/L (8-16); BILIRUBIN,TOTAL 0.8 mg/dL (0.2-1); BLOOD UREA NITROGEN 16 mg/dL (7-18); CHLORIDE 97 mmol/L (98-107); CO2 24 mmol/L (21-32); CREATININE 0.9 mg/dL (0.55-1.3); GLUCOSE,RANDOM 114 mg/dL (74-106); MAGNESIUM 1.8 mg/dL (1.8-2.4); POTASSIUM 3.3 mmol/L (3.5-5.1); SGOT/AST 10 U/L (15-37); SGPT/ALT 30 U/L (13-61); SODIUM 134 mmol/L (136-145); TOT PROT 6.5 g/dl (6.4-8.2); URIC ACID 4.3 mg/dL (2.6-7.2)
[2018-07-03] MEDS ORDERED: PROCHLORPERAZINE INJECTION 10 MG/2 ML VIAL IVPB PRN (09:18)
[2018-07-03] MEDS ORDERED: POTASSIUM CHLORIDE TABS 20 MEQ TABLET.ER (FP) PO ONE (09:26)
[2018-07-03 09:35] VITALS: TEMP 97.8
[2018-07-03] MEDS: SUCRALFATE 1 GM/10 ML UNIT DOSE CUPS PO SCH ×2 (09:37→13:28)
[2018-07-03] MEDS: KCL 10 MEQ IVPB 10 MEQ/100 ML INFUS.BAG IVPB SCH ×2 (09:52→10:41)
[2018-07-03] MEDS ORDERED: PANTOPRAZOLE 20 MG TABLET (FP) PO SCH (10:00)
[2018-07-03] MEDS ORDERED: PANTOPRAZOLE 40 MG TABLET (FP) PO SCH (10:00)
[2018-07-03 13:24] LABS: URINE APPEARANCE CLEAR; URINE BILIRUBIN NEGATIVE (<2.0 mg/dL); URINE COLOR YELLOW; URINE GLUCOSE (UA) NEGATIVE (NEGATIVE); URINE KETONE TRACE (NEGATIVE); URINE LEUK ESTERASE NEGATIVE (NEGATIVE); URINE NITRITE NEGATIVE (NEGATIVE); URINE PROTEIN NEGATIVE (NEGATIVE); URINE UROBILINOGEN NEGATIVE mg/dL (0.2-1.0)
--- NOTE | 2018-07-03 14:22 | PN ---
Progress Note (short form) - Note Progress Note: Subjective: Patient noted to have low blood pressure in the morning (SBP 70s) while in bathroom- taken to bed and SBP improved to 110s. Patient given IV fluids with SBP 117. Denies any current lh, dizziness, chest pain, palpitations, orthopnae, PND or SHANE. Objective: Vital Signs - 24 hr 07/02/18 07/02/18 07/02/18 18:00 21:00 21:42 Temperature 97.8 F 97.9 F Pulse Rate 84 92 H Respiratory 20 18 18 Rate Blood Pressure 118/56 L 118/63 O2 Sat by Pulse 99 Oximetry (%) 07/03/18 07/03/18 07/03/18 06:09 06:47 06:55 Temperature 97.6 F Pulse Rate 85 95 H 81 Respiratory 18 18 18 Rate Blood Pressure 142/79 76/37 L 108/78 O2 Sat by Pulse Oximetry (%) 07/03/18 07/03/18 07/03/18 07:05 09:00 09:34 Temperature 97.8 F Pulse Rate 67 92 H Respiratory 18 18 Rate Blood Pressure 112/67 117/78 O2 Sat by Pulse 100 Oximetry (%) Gen: well appearing male sitting upright in NAD HEENT: NC/AT. OP Clear, MMM Cardiac: S1/S2 no murmurs Pulm: clear breath sounds bilaterally Ext: WWP. no Edema Labs: reviewed. CBC,CMP WBC 7.5 K/mm3 (4.0-10.0) 07/03/18 07:30 RBC 4.96 M/mm3 (4.00-5.60) 07/03/18 07:30 Hgb 14.5 GM/dL (11.7-16.9) 07/03/18 07:30 Hct 42.9 % (35.4-49) 07/03/18 07:30 MCV 86.7 fl (80-96) 07/03/18 07:30 MCH 29.2 pg (25.7-33.7) 07/03/18 07:30 MCHC 33.7 g/dl (32.0-35.9) 07/03/18 07:30 RDW 12.8 % (11.9-15.9) 07/03/18 07:30 Plt Count 187 K/MM3 (134-434) 07/03/18 07:30 MPV 8.8 fl (7.5-11.1) 07/03/18 07:30 Absolute Neuts (auto) 6.3 K/mm3 (1.5-8.0) 07/03/18 07:30 Neutrophils % 84.0 % (42.8-82.8) H 07/03/18 07:30 Neutrophils % (Manual) 89.9 % (42.8-82.8) H 06/29/18 06:00 Band Neutrophils % 0.0 % 06/29/18 06:00 Lymphocytes % 15.0 % (8-40) 07/03/18 07:30 Lymphocytes % (Manual) 6.1 % (8-40) L D 06/29/18 06:00 Monocytes % 0.9 % (3.8-10.2) L 07/03/18 07:30 Monocytes % (Manual) 4 % (3.8-10.2) 06/29/18 06:00 Eosinophils % 0.0 % (0-4.5) 07/03/18 07:30 Eosinophils % (Manual) 0.0 % (0-4.5) 06/29/18 06:00 Basophils % 0.1 % (0-2.0) D 07/03/18 07:30 Basophils % (Manual) 0.0 % (0-2.0) 06/29/18 06:00 Myelocytes % (Man) 0 % (0-2) 06/29/18 06:00 Promyelocytes % (Man) 0 % (0-2) 06/29/18 06:00 Blast Cells % (Manual) 0 % (0-0) 06/29/18 06:00 Nucleated RBC % 0 % (0-0) 07/03/18 07:30 Metamyelocytes 0 % (0-2) 06/29/18 06:00 Hypochromia 0 06/29/18 06:00 Toxic Granulation 0 06/29/18 06:00 Dohle Bodies 0 06/29/18 06:00 Platelet Estimate Normal 06/29/18 06:00 Polychromasia 0 06/29/18 06:00 Poikilocytosis 0 06/29/18 06:00 Basophilic Stippling 0 06/29/18 06:00 Anisocytosis 0 06/29/18 06:00 Microcytosis 0 06/29/18 06:00 Macrocytosis 0 06/29/18 06:00 Spherocytes 0 06/29/18 06:00 Sickle Cells 0 06/29/18 06:00 Target Cells 0 06/29/18 06:00 Tear Drop Cells 0 06/29/18 06:00 Ovalocytes 0 06/29/18 06:00 Stomatocytes 0 06/29/18 06:00 Helmet Cells 0 06/29/18 06:00 Garsia-Portis Bodies 0 06/29/18 06:00 [place] Rings 0 06/29/18 06:00 Ledy Cells 0 06/29/18 06:00 Acanthocytes (Spur) 0 06/29/18 06:00 Rouleaux 0 06/29/18 06:00 w Fragmented RBCs 0 06/29/18 06:00 Schistocytes 0 06/29/18 06:00 Sodium 134 mmol/L (136-145) L 07/03/18 07:30 Potassium 3.3 mmol/L (3.5-5.1) L 07/03/18 07:30 Chloride 97 mmol/L (98-107) L 07/03/18 07:30 Carbon Dioxide 24 mmol/L (21-32) 07/03/18 07:30 Anion Gap 13 MMOL/L (8-16) 07/03/18 07:30 BUN 16 mg/dL (7-18) 07/03/18 07:30 Creatinine 0.9 mg/dL (0.55-1.3) 07/03/18 07:30 Creat Clearance w eGFR > 60 (>60) 07/03/18 07:30 Random Glucose 114 mg/dL (74-106) H 07/03/18 07:30 Uric Acid 4.3 mg/dL (2.6-7.2) 07/03/18 07:30 Calcium 8.0 mg/dL (8.5-10.1) L 07/03/18 07:30 Magnesium 1.8 mg/dL (1.8-2.4) 07/03/18 07:30 Total Bilirubin 0.8 mg/dL (0.2-1) 07/03/18 07:30 Direct Bilirubin 0.1 mg/dL (0.0-0.2) 06/28/18 09:58 AST 10 U/L (15-37) L 07/03/18 07:30 ALT 30 U/L (13-61) 07/03/18 07:30 Alkaline Phosphatase 70 U/L (45-117) 07/03/18 07:30 LD Total 205 U/L (87-246) 06/28/18 09:58 Creatine Kinase 36 IU/L (26-308) 07/01/18 15:30 Troponin I < 0.02 ng/ml (0.00-0.05) 07/03/18 07:30 Total Protein 6.5 g/dl (6.4-8.2) 07/03/18 07:30 Albumin 3.4 g/dl (3.4-5.0) 07/03/18 07:30 Tumor Marker AFP 1.4 ng/ml (0.0-8.3) 06/28/18 09:58 Tumor Marker HCG < 1.0 mIU/mL (0-3) 06/28/18 09:58 A/P: 27 year old male with testicular cancer undergoing chemotherapy found to have brief episode of hypotension with resolution without intervention- currently hemodynamically stable, WBC wnl and asymptomatic. Continue to ensure that patient is adequately hydrated. Patient with normal echocardiogram, ECG and cardiac biomarkers. No indication for further cardiovascular testing at this time. Durga Menard MD
--- NOTE | 2018-07-03 15:22 | PN ---
Progress Note, Physician - Current Medication List Current Medications: Active Medications Bisacodyl (Dulcolax -) 5 mg PO DAILY PRN PRN Reason: CONSTIPATION Last Admin: 06/29/18 18:11 Dose: 5 mg Escitalopram Oxalate (Lexapro -) 20 mg PO HS [facility] Last Admin: 07/02/18 21:43 Dose: 20 mg Dextrose/Sodium Chloride (D5-Ns -) 1,000 mls @ 75 mls/hr IV ASDIR [facility] Last Admin: 07/03/18 09:36 Dose: 75 mls/hr Pantoprazole Sodium (Protonix -) 40 mg PO DAILY [facility] Last Admin: 07/03/18 09:37 Dose: 40 mg Prochlorperazine Edisylate (Compazine Injection -) 10 mg IVPB Q8H PRN PRN Reason: NAUSEA AND/OR VOMITING Last Admin: 07/03/18 09:35 Dose: 10 mg Sucralfate (Carafate Oral Suspension -) 1 gm PO QID [facility] Last Admin: 07/03/18 13:28 Dose: 1 gm - Objective Vital Signs: Vital Signs Temperature 97.8 F 07/03/18 14:30 Pulse Rate 75 07/03/18 14:30 Respiratory Rate 20 07/03/18 14:30 Blood Pressure 120/68 07/03/18 14:30 O2 Sat by Pulse Oximetry (%) 100 07/03/18 09:00 Labs: CBC, BMP 07/03/18 07:30 07/03/18 07:30 Problem List - Problems (1) Testicular cancer Code(s): C62.90 - MALIG NEOPLASM OF UNSP TESTIS, UNSP DESCENDED OR UNDESCENDED (2) Depression with anxiety Code(s): F41.8 - OTHER SPECIFIED ANXIETY DISORDERS
--- NOTE | 2018-07-03 16:33 | CON.GI ---
Consult - History of Present Illness Chief Complaint: Recent noncardiac chest pain History of Present Illness: 27 y.o. M with testicular cancer, recent noncardiac chest pain. Says he has no GI symptoms now. - History Source History Provided By: Patient Limitations to Obtaining History: No Limitations - Past Medical History Heme/Onc: Yes: Other (testicular cancer (seminoma)) - Alcohol/Substance Use Hx Alcohol Use: No - Smoking History Smoking history: Never smoked Have you smoked in the past 12 months: No - Social History Usual Living Arrangement: With Parent Home Medications - Allergies Allergies/Adverse Reactions: Allergies Allergy/AdvReac Type Severity Reaction Status Date / Time amoxicillin [From Augmentin] Allergy Rash Verified 04/15/18 19:37 clavulanic acid Allergy Rash Verified 04/15/18 19:37 [From Augmentin] Fish Containing Products Allergy Verified 04/09/18 16:13 fish derived Allergy Verified 04/09/18 16:13 Fish Allergy Uncoded 04/08/18 16:28 - Home Medications Home Medications: Ambulatory Orders Escitalopram Oxalate [Lexapro -] 20 mg PO DAILY #30 tablet 04/22/18 Physical Exam-GI Vital Signs: Vital Signs Temperature 97.8 F 07/03/18 14:30 Pulse Rate 75 07/03/18 14:30 Respiratory Rate 20 07/03/18 14:30 Blood Pressure 120/68 07/03/18 14:30 O2 Sat by Pulse Oximetry (%) 100 07/03/18 09:00 Labs: CBC, BMP 07/03/18 07:30 07/03/18 07:30 Assessment/Plan No physical exam or extended history was performed as patient says he has no GI issues and only wants to be discharged. Case discussed with Dr Hyde. No GI consult needed.
--- NOTE | 2018-07-03 17:05 | PN ---
Progress Note, Physician Chief Complaint: Testicular cancer History of Present Illness: Had an episode of hypotension while urinating in bathroom with SBP 70s, associated with lightheadedness. BP improved with laying down and saline. Symptoms promptly resolved. Reports similar episodes on prior admission and at home, "my mom gives me salt." Has felt fine throughout the day, walking around, No dizziness, chest pain, SOB. - Current Medication List Current Medications: Active Medications Bisacodyl (Dulcolax -) 5 mg PO DAILY PRN PRN Reason: CONSTIPATION Last Admin: 06/29/18 18:11 Dose: 5 mg Escitalopram Oxalate (Lexapro -) 20 mg PO HS [facility] Last Admin: 07/02/18 21:43 Dose: 20 mg Dextrose/Sodium Chloride (D5-Ns -) 1,000 mls @ 75 mls/hr IV ASDIR [facility] Last Admin: 07/03/18 09:36 Dose: 75 mls/hr Pantoprazole Sodium (Protonix -) 40 mg PO DAILY [facility] Last Admin: 07/03/18 09:37 Dose: 40 mg Prochlorperazine Edisylate (Compazine Injection -) 10 mg IVPB Q8H PRN PRN Reason: NAUSEA AND/OR VOMITING Last Admin: 07/03/18 09:35 Dose: 10 mg Sucralfate (Carafate Oral Suspension -) 1 gm PO QID [facility] Last Admin: 07/03/18 13:28 Dose: 1 gm - Objective Vital Signs: Vital Signs Temperature 97.8 F 07/03/18 14:30 Pulse Rate 75 07/03/18 14:30 Respiratory Rate 20 07/03/18 14:30 Blood Pressure 120/68 07/03/18 14:30 O2 Sat by Pulse Oximetry (%) 100 07/03/18 09:00 Constitutional: Yes: Well Nourished, No Distress Eyes: Yes: Conjunctiva Clear. No: Sclera Icterus Cardiovascular: Yes: WNL, Regular Rate and Rhythm Respiratory: Yes: Regular, CTA Bilaterally Gastrointestinal: Yes: WNL Extremities: Yes: WNL Edema: No Labs: CBC, BMP 07/03/18 07:30 07/03/18 07:30 Problem List - Problems (1) Testicular cancer Assessment/Plan: 27M with non-seminomatous germ cell tumor, on BEP D6 today Tolerated well Episode of hypotension this morning likely related to micturition Appreciate cardiology evaluation Ok for discharge today Protonix 40 mg daily and Compazine 10 mg TID PRN sent to [facility] pharmacy F/u with Dr. Chavez on Thursday Code(s): C62.90 - MALIG NEOPLASM OF UNSP TESTIS, UNSP DESCENDED OR UNDESCENDED
--- NOTE | 2018-07-03 17:11 | DS ---
Physical Examination Vital Signs: Vital Signs Temperature 97.8 F 07/03/18 14:30 Pulse Rate 75 07/03/18 14:30 Respiratory Rate 20 07/03/18 14:30 Blood Pressure 120/68 07/03/18 14:30 O2 Sat by Pulse Oximetry (%) 100 07/03/18 09:00 Constitutional: Yes: Well Nourished Eyes: No: Sclera Icterus Cardiovascular: Yes: WNL, Regular Rate and Rhythm Respiratory: Yes: WNL, Regular, CTA Bilaterally Gastrointestinal: Yes: WNL Edema: No Labs: CBC, BMP 07/03/18 07:30 07/03/18 07:30 Discharge Summary Reason For Visit: TESTICULAR CANCER Current Active Problems Depression with anxiety (Acute) Hospital Course: Pt received BEP chemotherapy and tolerated well. Condition: Stable - Instructions Diet, Activity, Other Instructions: Normal Disposition: HOME - Home Medications Comprehensive Discharge Medication List: Ambulatory Orders Escitalopram Oxalate [Lexapro -] 20 mg PO DAILY #30 tablet 04/22/18 Compazine 10 mg TID PRN for nausea Protonix 40 mg daily
[2018-07-03 17:13] VITALS: BP 131/78; PULSE 89
== END 2018-07-03 17:29 | disposition home or self-care (01) | DRG 693 ==
LOC: J7W 08:34
PROVIDERS: ADMIT Internal Medicine Hematology & Oncology; ATTEND Internal Medicine Hematology & Oncology
DX: Z51.11 Encounter for antineoplastic chemotherapy (principal); I95.9 Hypotension, unspecified; E86.0 Dehydration; F32.9 Major depressive disorder, single episode, unspecified; F41.9 Anxiety disorder, unspecified; K21.9 Gastro-esophageal reflux disease without esophagitis; R07.89 Other chest pain; R06.6 Hiccough; C62.90 Malignant neoplasm of unspecified testis, unspecified whether descended or undescended
CPT/HCPCS: 36415; 80053; 80076; 81003; 82105; 82550; 83615; 83735; 84484; 84550; 84702; 85025; 87040; 87086; 93005; 93010; 93306-TC; 96361; 96367; 96375; 96413; 96415; 96417; J1100; J1453; J2405; J7030; J9040; J9181

== ENCOUNTER 2018-07-06 08:42 | Day surgery (SDC) | payer OTHER ==
--- NOTE | 2018-07-01 17:37 | CON.GI ---
Consult Consult Specialty:: GI Referred by:: Dr. Cherry Jerez Reason for Consultation:: Hiccups / dyspepsia - History of Present Illness Chief Complaint: Hiccups and GERD History of Present Illness: 27M admitted for treatment of testicular cancer. he is receiving bleomycin, cisplatin and etoposide. He is on day # 3. He began experiencing hiccups, reflux symptomatology yesterday. The hiccups resolved, still with some reflux. Prior to admission he was in his usual state of health. He has had occasional relfux symptoms prior to this that improved through the use of mylanta. He denies associated nausea, vomiting, dysphagia, odynophagia, abdominal pain, change in bowel habits, rectal bleeding, diarrhea. He has never had an upper endoscopy of colonoscopy. There is no family history of colorectal cancer or other GI malignancy. - History Source History Provided By: Patient, Medical Record Limitations to Obtaining History: No Limitations - Past Medical History Psych: Yes: Anxiety, Depression - Past Surgical History Additional Surgical History: Left orchiectomy - Alcohol/Substance Use Hx Alcohol Use: No History of Substance Use: reports: None - Smoking History Smoking history: Never smoked Have you smoked in the past 12 months: No - Social History Usual Living Arrangement: With Parent Occupation: Unemployed currently Place of : [facility] History of Recent Travel: No Home Medications - Allergies Allergies/Adverse Reactions: Allergies Allergy/AdvReac Type Severity Reaction Status Date / Time amoxicillin [From Augmentin] Allergy Rash Verified 04/15/18 19:37 clavulanic acid Allergy Rash Verified 04/15/18 19:37 [From Augmentin] Fish Containing Products Allergy Verified 04/09/18 16:13 fish derived Allergy Verified 04/09/18 16:13 Fish Allergy Uncoded 04/08/18 16:28 - Home Medications Home Medications: Ambulatory Orders Escitalopram Oxalate [Lexapro -] 20 mg PO DAILY #30 tablet 04/22/18 Family Disease History - Family Disease History Family Disease History: Other: Father (Alive: 60: healthy), Mother (Alive: 60: healthy), Sister (1, healthy), Son (None), Daughter (None) Other Family History: No family history of colorectal cancer or other GI malignancy Review of Systems - Review of Systems Constitutional: denies: Chills, Fever, Unintentional Wgt. Loss Neck: reports: Swollen Glands Cardiovascular: denies: Chest Pain Respiratory: denies: Cough Gastrointestinal: reports: Indigestion. denies: Abdominal Pain, Bloating, Constipation, Diarrhea, Dysphagia, Melena, Nausea, Vomiting Physical Exam-GI Constitutional: Yes: Calm Eyes: No: Sclera Icterus Cardiovascular: Yes: Regular Rate and Rhythm Respiratory: Yes: CTA Bilaterally Gastrointestinal Inspection: No: Distention, Scars ...Auscultate: Yes: Normoactive Bowel Sounds ...Palpate: Yes: Soft. No: Hepatomegaly, Splenomegaly ...Percussion: No: Tympanitic Edema: No (No LE edema) Neurological: Yes: Alert Problem List - Problems (1) Dyspepsia Assessment/Plan: Suspect chemo related dyspeptic symptoms. Cisplatin side effect profile lists hiccups as a common one. Clinically he seems improved. Hiccups have resolved Advise: Continuing protonix 20mg once daily for one week Discontinue sucralfate Add famotidine 20mg once nightly as needed Outpatient follow-up Code(s): R10.13 - EPIGASTRIC PAIN
[~2018-07-06 08:42] MED LIST changes: -BLEOMYCIN SULFATE 15 UNIT VIAL SQ ONE; -BLEOMYCIN SULFATE IVPB ONE; -CISPLATIN IV ONE; -DEXAMETHASONE INJECTION 10 MG, ONDANSETRON INJECTION 8 MG in SODIUM CHLORIDE 100 ML IVPB ONE; -ETOPOSIDE IV ONE; -FOSAPREPITANT DIMEGLUMINE 150 MG in SODIUM CHLORIDE 145 ML IVPB ONE; +PEGFILGRASTIM 6 MG/0.6 ML DISP.SYRIN SQ ONE; -POTASSIUM CHLORIDE 20 MEQ, MAGNESIUM SULFATE 1 GM in SODIUM CHLORIDE 1,000 ML IVPB ONE; -SODIUM CHLORIDE 1,000 ML IV ONE; -SODIUM CHLORIDE IV ONE; -SODIUM CHLORIDE IVPB ONE
[2018-07-06] MEDS ORDERED: SODIUM CHLORIDE 500 ML IV ONE (10:00)
[2018-07-06] MEDS ORDERED: SODIUM CHLORIDE IVPB ONE (10:30)
[2018-07-06] MEDS ORDERED: BLEOMYCIN SULFATE IVPB ONE (10:30)
[2018-07-06 12:26] LABS: BASO % 0.8 % (0-2.0); EOS % 0.6 % (0-4.5); HEMATOCRIT 44.9 % (35.4-49); HEMOGLOBIN 15.1 GM/dL (11.7-16.9); LYMPH % 22.5 % (8-40); MCH 28.8 pg (25.7-33.7); MCHC 33.7 g/dl (32.0-35.9); MEAN CELL VOLUME 85.6 fl (80-96); MEAN PLT VOLUME 8.6 fl (7.5-11.1); MONO % 0.8 % (3.8-10.2); NEUT % 75.3 % (42.8-82.8); PLATELET COUNT 142 K/MM3 (134-434); RBC 5.25 M/mm3 (4.00-5.60); RDW 12.5 % (11.9-15.9); WHITE BLOOD COUNT 7.7 K/mm3 (4.0-10.0)
[2018-07-06 12:33] LABS: ALBUMIN 3.7 g/dl (3.4-5.0); ALK PHOS 91 U/L (45-117); ANION GAP 9 MMOL/L (8-16); BILIRUBIN,DIRECT 0.2 mg/dL (0.0-0.2); BILIRUBIN,TOTAL 0.6 mg/dL (0.2-1); BLOOD UREA NITROGEN 17 mg/dL (7-18); CHLORIDE 100 mmol/L (98-107); CO2 26 mmol/L (21-32); CREATININE 0.8 mg/dL (0.55-1.3); GLUCOSE,RANDOM 91 mg/dL (74-106); LDH 197 U/L (87-246); MAGNESIUM 2.2 mg/dL (1.8-2.4); SGOT/AST 18 U/L (15-37); SGPT/ALT 44 U/L (13-61); SODIUM 134 mmol/L (136-145); TOT PROT 7.1 g/dl (6.4-8.2)
[2018-07-06 16:04] VITALS: TEMP 97.9
[2018-07-06 16:07] VITALS: BP 117/70; PULSE 98
== END 2018-07-06 15:00 | disposition home or self-care (01) ==
LOC: JONCCHEMO 08:42 → J7W 13:10 → JONCCHEMO 15:00
PROVIDERS: ATTEND Internal Medicine Hematology & Oncology
DX: Z51.11 Encounter for antineoplastic chemotherapy (principal); C62.90 Malignant neoplasm of unspecified testis, unspecified whether descended or undescended
CPT/HCPCS: 36415; 80053; 80076; 82105; 83615; 83735; 84702; 85025; 87070; 96413; J9040

== ENCOUNTER 2018-07-07 07:39 | Day surgery (SDC) | payer OTHER ==
[2018-07-07] MEDS ORDERED: PEGFILGRASTIM 6 MG/0.6 ML DISP.SYRIN SQ ONE (10:00)
[2018-07-07 15:18] VITALS: BP 144/85; PULSE 103; TEMP 98.3
== END 2018-07-07 11:30 | disposition home or self-care (01) ==
LOC: JONCCHEMO 07:39 → J7W 11:09 → JONCCHEMO 11:30
PROVIDERS: ATTEND Internal Medicine Hematology & Oncology
PROC: 3E013GC Introduction of Other Therapeutic Substance into Subcutaneous Tissue, Percutaneous Approach (ICD-10-PCS; principal; 2018-07-07)
DX: C62.90 Malignant neoplasm of unspecified testis, unspecified whether descended or undescended (principal); Z76.89 Persons encountering health services in other specified circumstances
CPT/HCPCS: 96372; J2505

== ENCOUNTER 2018-07-13 07:24 | Day surgery (SDC) | payer OTHER ==
[2018-07-13] MEDS ORDERED: BLEOMYCIN SULFATE IVPB ONE (10:00)
[2018-07-13] MEDS ORDERED: SODIUM CHLORIDE IVPB ONE (10:00)
[2018-07-13 10:05] LABS: BASO % 0.2 % (0-2.0); EOS % 0.3 % (0-4.5); HEMOGLOBIN 14.3 GM/dL (11.7-16.9); LYMPH % 17.2 % (8-40); MCHC 35.9 g/dl (32.0-35.9); MEAN CELL VOLUME 86.3 fl (80-96); NEUT % 78.3 % (42.8-82.8); PLATELET COUNT 194 K/MM3 (134-434); RBC 4.63 M/mm3 (4.00-5.60); RDW 12.4 % (11.9-15.9); WHITE BLOOD COUNT 11.1 K/mm3 (4.0-10.0)
[2018-07-13] MEDS ORDERED: SODIUM CHLORIDE 500 ML IV ONE (10:30)
[2018-07-13 10:40] LABS: ALBUMIN 3.8 g/dl (3.4-5.0); ALK PHOS 110 U/L (45-117); ANION GAP 11 MMOL/L (8-16); BILIRUBIN,DIRECT 0.1 mg/dL (0.0-0.2); BILIRUBIN,TOTAL 0.2 mg/dL (0.2-1); BLOOD UREA NITROGEN 15 mg/dL (7-18); CALCIUM 8.7 mg/dL (8.5-10.1); CHLORIDE 104 mmol/L (98-107); CO2 26 mmol/L (21-32); CREATININE 0.9 mg/dL (0.55-1.3); GLUCOSE,RANDOM 118 mg/dL (74-106); MAGNESIUM 1.7 mg/dL (1.8-2.4); POTASSIUM 3.6 mmol/L (3.5-5.1); SGOT/AST 17 U/L (15-37); SGPT/ALT 31 U/L (13-61); SODIUM 140 mmol/L (136-145); TOT PROT 7.1 g/dl (6.4-8.2)
[2018-07-13] MEDS ORDERED: ACETAMINOPHEN 325 MG TABLET (FP) ONE (11:13)
[2018-07-13] MEDS ORDERED: MAGNESIUM OXIDE 400 MG TABLET (FP) PO ONE (12:23)
[2018-07-13 12:56] LABS: ACANTHOCYTES 0; ANISOCYTOSIS 0; HELMET CELLS 0; HOWELL-JOLLY BODIES 0; MACROCYTOSIS 0; OVALOCYTE 0; PLATELET ESTIMATE NORMAL; ROULEAU 0; SICKELED CELLS 0; TARGET CELLS 0; TEAR DROP CELLS 0
[2018-07-13 14:19] LABS: TOXIC GRANULATION 0
[2018-07-13 16:04] VITALS: TEMP 98
[2018-07-13 16:26] VITALS: BP 120/73; PULSE 93
== END 2018-07-13 12:30 | disposition home or self-care (01) ==
LOC: JONCCHEMO 07:24 → J7W 10:29 → JONCCHEMO 12:30
PROVIDERS: ATTEND Internal Medicine Hematology & Oncology
DX: Z51.11 Encounter for antineoplastic chemotherapy (principal); C62.90 Malignant neoplasm of unspecified testis, unspecified whether descended or undescended
CPT/HCPCS: 36415; 80053; 80076; 82105; 83735; 84702; 85025; 96413; J9040

== ENCOUNTER 2022-12-18 09:42 | Emergency (ER) | payer OTHER ==
[2022-12-18 09:51] VITALS: TEMP 97.8; BMI 31.3
[2022-12-18] MEDS ORDERED: SODIUM CHLORIDE 0.9% 500 ML INFUS.BAG IV ONE (09:56)
[2022-12-18 10:51] LABS: POTASSIUM 3.8 mmol/L (3.5-5.1)
[2022-12-18 10:53] LABS: BLOOD UREA NITROGEN 18.1 mg/dL (7-18); CALCIUM 9.1 mg/dL (8.5-10.1)
[2022-12-18 10:54] LABS: MAGNESIUM 2.1 mg/dL (1.8-2.4)
[2022-12-18 10:59] LABS: BILIRUBIN,TOTAL 0.7 mg/dL (0.2-1); TOT PROT 7.3 g/dl (6.4-8.2)
[2022-12-18 11:04] LABS: BASO % 0.6 % (0-2.0); EOS % 1.4 % (0-4.5); HEMATOCRIT 46.5 % (35.4-49); HEMOGLOBIN 16.3 GM/dL (11.7-16.9); LYMPH % 24.5 % (8-40); MCH 30.4 pg (25.7-33.7); MCHC 35.1 g/dl (32.0-35.9); MEAN CELL VOLUME 86.6 fl (80-96); MEAN PLT VOLUME 8.4 fl (7.5-11.1); MONO % 6.4 % (3.8-10.2); NEUT % 67.1 % (42.8-82.8); PLATELET COUNT 256 10^3/uL (134-434); RBC 5.37 M/mm3 (4.00-5.60); RDW 13.1 % (11.9-15.9); WHITE BLOOD COUNT 7.2 K/mm3 (4.0-10.0)
[2022-12-18 12:55] VITALS: BP 133/83; RESP 15
[2022-12-18 13:35] VITALS: PULSE 85
== END 2022-12-18 13:14 | disposition home or self-care (01) ==
LOC: JER 09:42
DX: R55 Syncope and collapse (principal); Z20.822 Contact with and (suspected) exposure to COVID-19
CPT/HCPCS: 0241U-QW; 36415; 71045-TC-FY; 80053; 83735; 84484; 85025; 86850; 86900; 86901; 93005; 93010; 99285-25